=== PATIENT | female | born 1955 | race Caucasian/White ===

== ENCOUNTER 2019-02-07 08:48 | Day surgery (SDC) | payer OTHER ==
[2019-02-05 18:25] VITALS: BMI 27.6
[2019-02-07] VITALS (10 sets, daily range): BP systolic 87–153; BP diastolic 50–84; PULSE 65–77; RESP 13–23; Ht 152.4 cm; Wt 65.2 kg
[~2019-02-07] VITALS: Ht 152.4 cm; Wt 65.2 kg
[2019-02-07] MEDS ORDERED: ATOR10TA65 ORAL (09:36)
[2019-02-07] MEDS ORDERED: LEVO50TA7 ORAL (09:36)
[2019-02-07] MEDS ORDERED: SOD CHLORIDE 0.9% 1,000 ML IV SCH (10:00)
[2019-02-07] MEDS ORDERED: CEFAZOLIN 2 GM/50 ML (PMX) 50 ML IVPB ONE (10:00)
[2019-02-07] MEDS ORDERED: BUPIVACAINE 0.25% (MPF) 30 ML INJ ONE (10:10)
[2019-02-07] MEDS ORDERED: BUPIVACAINE 0.25% (STERILE-PAK) 30 ML INJ INJ ONE (11:00)
--- NOTE | 2019-02-07 11:11 | PREAC ---
Date/Time of Note Date/Time of Note DATE: 02/07/19 TIME: 11:06 Anesthesia Eval and Record Evaluation Time Pre-Procedure Interview DATE: 02/07/19 TIME: 11:06 Age 63 Sex female NPO: 8 hrs Preoperative diagnosis Back Mass Planned procedure Back Mass Excision Past Medical History Past Medical History: Includes Cardio: Dyslipidemia Endo: Hypothyroid Surgery & Anesthesia Issues No known issue (No family history) Meds Anticoagulation: No Beta Lisseth within 24 hr: No Reason Beta Lisseth not given: Pt. not on B-Lisseth Reported Medications Levothyroxine Sodium* (Levothyroxine Sodium*) 50 Mcg Tablet, 1 TAB ORAL DAILY 02/07/19 Atorvastatin (Atorvastatin) 10 Mg Tablet, 1 TAB ORAL DAILY 02/07/19 Current Medications Sodium Chloride 1,000 ml @ 75 mls/hr [id number] IV ; Start 02/07/19 at 10:00; Stop 02/07/19 at 23:19 Meds reviewed: Yes Allergies Coded Allergies: No Known Drug Allergies (Unverified Allergy, Unknown, 02/07/19) Allergies Reviewed: No Labs/Studies Labs Reviewed: Reviewed by anesthesiologist test: N/A Studies: ECG (SR) Pre-procedure Exam Last vitals Vital Signs Date Temp Pulse Resp B/P (MAP) Pulse Ox O2 O2 Flow FiO2 Time Delivery Rate 02/07/19 98.1 65 16 153/70 100 Room Air 08:55 (97) Airway: Adequate mouth opening, Adequate thyromental dist Mallampati: Mallampati II Teeth: Normal Lung: Normal Heart: Normal ASA Physical Status ASA physical status: 2 Emergency: None Planned Anesthetic General/MAC: MAC Pre-operative Attestations Prior to commencing anesthesia and surgery, the patient was re-evaluated, there was verification of: *The patient's identity *The results of appropriate recent lab work and preoperative vital signs *The above evaluation not changing prior to induction *Anesthetic plan, risk benefits, alternative and complications discussed with patient/family; questions answered; patient/family understands, accepts and wishes to proceed. PABLO GAITAN CRNA Feb 07, 2019 11:11
[2019-02-07] MEDS ORDERED: FENTAnyl 50 MCG/ML VIAL ONE (11:52)
[2019-02-07] MEDS ORDERED: ROCURONIUM 50 MG INJ ONE (12:19)
[2019-02-07] MEDS ORDERED: SUCCINYLCHOLINE CHLORIDE 100 MG/5 ML SYG IV ONE (12:19)
[2019-02-07] MEDS ORDERED: CEFAZOLIN 1 GM INJ ONE (12:19)
[2019-02-07] MEDS ORDERED: LIDOCAINE 100 MG SYRINGE ONE (12:19)
[2019-02-07] MEDS ORDERED: SUGAMMADEX SODIUM 200 MG/2 ML VIAL IV ONE (12:19)
[2019-02-07] MEDS ORDERED: PROPOFOL 20 ML ONE (12:19)
[2019-02-07] MEDS ORDERED: PROVENTIL HFA 6.7GM INHALER ONE (12:24)
[2019-02-07] MEDS ORDERED: HYDROCODONE/APAP (5/325) TAB PO ONE (12:30)
--- NOTE | 2019-02-07 12:33 | OPR ---
Date/Time of Note Date/Time of Note DATE: 02/07/19 TIME: 12:31 Operative Report Procedure Date: Feb 07, 2019 Preoperative Diagnosis left back tumor Postoperative Diagnosis same Operation/Procedure Performed 1. excision of left back tumor 9 cm tumor 9 cm incision of left back 2. localized adjacent tissue transfer with the use of skin flaps 18 sq cm defect of left back 3. therapeutic injection of subcutaneous local anesthesia Surgeon see signature line Lab Courier none Anesthesia Type: general Estimated Blood Loss: 0 - 10 ml's Transfusion none Specimen left back mass Grafts/Implants none Complications none Pt Condition Post Procedure: stable Indications This is a 63-year-old female with a painful left back mass. She required surgical excision of the mass. Risks alternatives benefits and percent were discussed the patient. Patient expressed understanding and consents to the operation. Procedure Description Patient is taken to the OR and prepped and draped in usual sterile fashion. Surgical time was performed. IV antibiotics given. Transverse incision was made with a 10 blade over the back tumor. Dissection with cautery was carried onto the tumor. The tumor was then peeled off of the muscular layer. Good hemostasis established in the surgical site. Due to tissue defect localized adjacent to his transfer with use of skin flaps were performed. Multilayer closure with interrupted 3-0 Vicryl and skin mouna. Therapeutic subcutaneous local anesthesia was injected at the incision site. Dry dressings were applied. Kam HERNANDEZ Feb 07, 2019 12:33
--- NOTE | 2019-02-08 09:16 | PAC ---
Date/Time of Note Date/Time of Note DATE: 02/08/19 TIME: 09:16 Post-Anesthesia Notes Post-Anesthesia Note Last documented vital signs Vital Signs Date Temp Pulse Resp B/P (MAP) Pulse Ox O2 O2 Flow FiO2 Time Delivery Rate 02/07/19 96.8 66 18 147/69 96 13:18 (95) 02/07/19 Room Air 13:07 Activity: WNL Respiratory function: WNL Cardiovascular function: WNL Mental status: Baseline Pain reasonably controlled: Yes Hydration appropriate: Yes Nausea/Vomiting absent: Yes STEVEN WILKERSON Feb 08, 2019 09:16
== END 2019-02-07 13:40 | disposition home or self-care (01) ==
LOC: SDS 08:48
PROVIDERS: ATTEND Surgery
DX: D17.1 Benign lipomatous neoplasm of skin and subcutaneous tissue of trunk (principal); E03.9 Hypothyroidism, unspecified
CPT/HCPCS: 14001; 88307; J0690; J2001; J3010; Z7512; Z7610